=== PATIENT | female | born 1975 | race Caucasian/White ===

== ENCOUNTER → 2023-11-18 06:22 | Day surgery (SDC) | payer OTHER, SELFPAY | LOC: GI 06:22 | PROVIDERS: ATTENDING PHYSICIAN Internal Medicine Gastroenterology; FAMILY PHYSICIAN Family Medicine | DX: Z12.11 Encounter for screening for malignant neoplasm of colon (principal); D12.0 Benign neoplasm of cecum; K64.8 Other hemorrhoids | CPT/HCPCS: 45385; 45380; 88305 ==

== ENCOUNTER → 2024-02-20 15:02 | Outpatient (REF) | payer OTHER, SELFPAY | LOC: HWWDC 15:02 | PROVIDERS: ATTENDING PHYSICIAN Advanced Practice Midwife; FAMILY PHYSICIAN Family Medicine | DX: Z12.31 Encounter for screening mammogram for malignant neoplasm of breast (principal) | CPT/HCPCS: 77063; 77067 ==

== ENCOUNTER 2025-01-30 13:40 | Inpatient (IN) | payer OTHER, SELFPAY ==
[2025-01-30 07:05] VITALS: BP 136/88
--- NOTE | 2025-01-30 07:59 | ED.GENMED ---
History of Present Illness
General
Chief Complaint: Abdominal Symptoms
Source: patient
Exam Limitations: none
Time Seen by Provider: 01/30/25 07:23
Nursing documentation reviewed up to this point in time: agreed with
History of Present Illness
History of Present Illness:
49-year-old female past medical history of hypertension presenting to the emergency department today with concerns of intermittent flank pain over the past week intermittent vomiting ongoing nausea and also chest pain that feels like reflux to her
mid chest coming from her abdomen. She claims that she does have a history of kidney stones and this feels similar. She does occasionally get reflux and has not been taking any medications for it. Denies any shortness of breath or diaphoresis.
Denies any history of cardiac disease.
Past History
Past History
ED Past Medical History: None
ED Past Surgical History: Gynecological
Social History
Tobacco: Non-smoker
Personal:
Living: with family
Family History
Family History: Negative Diabetes, Hypertension, Early CAD, Asthma or Cancer
Review of Systems
Review of Systems
Allergies reviewed?: Yes
All Other Systems: ROS reviewed and negative except as documented in HPI and ROS
Phy Exam
Physical Exam
Physical Exam:
GENERAL: Alert , in no apparent distress
EYE: pupils equal and reactive
NECK: Supple, no significant adenopathy.
ENT: o/p clr, mmm.
CARDIAC: Regular rate and rhythm .
LUNGS: Clear breath sounds bilaterally, no acute respiratory distress, no wheezes/rales/rhonchi
ABDOMEN: Soft, without focal tenderness, no r/g, no cvat
NEUROLOGICAL: Alert and oriented, no focal neuro deficits
SKIN: Warm and dry, skin intact.
MUSCULOSKELETAL: No edema, well perfused.
PSYCH: Normal and appropriate interaction.
Course
Orders/Labs/Results
Orders:
Orders
01/30/25 07:07
EKG [Electrocardiogram (*1)] Urgent
Reason for Study: Chest Pain
EKG- Treatment ONCE
01/30/25 07:49
0.9% Sodium Chloride 1000 ml [Nss] 1,000 ml IV BOLUS
Famotidine [Pepcid] 20 mg IV NOW STA
Ondansetron Injectable [Zofran] 4 mg IV NOW STA
01/30/25 07:50
CT Abd/Pel (IV only)-DH only Urgent
Comment:
Reason For Exam: abd pain, vomiting, stone hx
01/30/25 09:50
Complete Blood Count/With Diff Urgent
01/30/25 10:43
Comprehensive Metabolic Panel Urgent
Lipase Urgent
Comment: ADD ON
Urinalysis Reflex To Culture Urgent
Date Specimen was Collected: 01/30/25
Time Specimen was Collected: 10:40
Urine Microscopic Reflex Cult Urgent
Urine Culture Urgent
ESTHER Source: U
Specimen Description:
Date Specimen was Collected: 01/30/25
Time Specimen was Collected: 10:40
Abnormal Lab Results
01/30/25 01/30/25
09:50 10:43
MPV 11.3 H fL
(7.4-10.4)
Abs Immat Gran (auto) 0.1 H 10^3/uL
(0-0.05)
Absolute Neuts (auto) 7.2 H 10^3/uL
(1.4-6.5)
Absolute Lymphs (auto) 0.7 L 10^3/uL
(1.2-3.4)
Immature Gran % 0.7 H %
(0-0.5)
Neutrophils % 84.5 H %
(42.2-75.2)
Lymphocytes % 8.5 L %
(20.5-51.1)
Total Bilirubin 3.2 H mg/dl
(0.2-1.3)
AST 634 H* U/L
(14-36)
ALT 918 H* U/L
(0-35)
Alkaline Phosphatase 443 H U/L
(38-126)
Urine Bilirubin 1+ A
(Negative)
Leukocyte Esterase Rfl 1+ A
(Negative)
Urine Bacteria (Reflex) Many A
(Negative)
Urine Albumin (Reflex) 1+ A
(Neg - Trace)
01/30/25 09:50
01/30/25 10:43
Vital Signs
Initial and Last Documented VS:
Initial Vital Signs
Temp Pulse Resp BP Pulse Ox
98.6 F 109 16 136/88 100
01/30/25 07:05 01/30/25 07:05 01/30/25 07:05 01/30/25 07:05 01/30/25 07:05
Last Documented Vital Signs
Temp Pulse Resp BP Pulse Ox
98.6 F 81 16 140/87 100
01/30/25 07:05 01/30/25 12:04 01/30/25 07:05 01/30/25 12:04 01/30/25 12:04
MDM/Problems Addressed
MDM/Problems Addressed:
49-year-old female presenting to the emergency department with concerns of intermittent flank pain now some radiating burning discomfort to the chest that she thinks is reflux. Initial EKG here without significant abnormality heart rate in the 80s.
Initial heart rate of 109 but during my assessment heart rate in the 80s pulse ox 100% and remainder vital signs normal. PE seems very unlikely in the setting. No recent trauma surgery immobilization no history of blood clots or estrogen product
usage.. CT scan performed that showed biliary ductal dilatation. Case discussed with GI recommending MRCP. Patient admitted in stable condition.
*Pulse Oximetry
SaO2: 100
Oxygen Mode of Delivery: Room air
Patient hypoxic: no (100)
*Critical Care Note
Total Time (30-74mins, 75-104mins- exclusive of procedures): Not Applicable
ED Attending Note
-
Portions of this chart may have been created with voice recognition software.� Occasional wrong word or��sound alike� substitutions may have occurred due to the inherent limitations of voice recognition software.
Discharge Plan
Departure
Patient Disposition: Admit
Date of Disposition: 01/30/25
Time of Disposition: 12:58
Admit to: Med/Surg
Admit to doctor: Htay
Presentation/result/management discussed w/ accepting MD/DO: Hospitalist
Patient with high blood pressure during this ER visit?: No
Condition: Good
Covid-19: Not Applicable
Discharge Problem:
Dilated bile duct, Transaminitis, Serum total bilirubin elevated
Prescriptions:
No Action
oxycodone-acetaminophen 5-325 mg Tablet
1 tab PO Q4HPRN PRN (Reason: mild pain)
tamsulosin 0.4 mg Capsule
0.4 mg PO QPM
oxycodone 5 mg Capsule
5 mg PO ONCE PRN (Reason: mild pain)
Patient Comments:
01/30/2025, pt. used old prescription.
ibuprofen [Advil] 200 mg Tablet
400 - 600 mg PO BIDPRN PRN (Reason: mild pain)
losartan-hydrochlorothiazide 50-12.5 mg Tablet
1 tab PO DAILY
rosuvastatin 20 mg Tablet
20 mg PO DAILY
Zepbound 5 mg/0.5 mL Pen Injector
5 mg SC YUNG
Patient Comments:
01/30/2025, gets this med. from [facility].
Biest/Progesterone (Lactose Free) 1.25 mg/100 mg capsule
1 cap PO BID
Patient Comments:
01/30/2025, compounded at [facility].
collagen powder
1 tbsp PO DAILY
Referrals:
Mary Whitehead DO [Family Provider, Family Practice]
Interventions
Interventions:
*General Assessment Last Done: 01/30/25 07:05
*Neglect/Abuse Screening Last Done: 01/30/25 07:05
*ED COVID-19 Vaccine History Last Done: 01/30/25 08:06
*ED Influenza Vaccine History Last Done: 01/30/25 08:06
[facility] Risk Assessment Tool Last Done: 01/30/25 08:06
*Risk Screen - Suicide (C-SSRS) Last Done: 01/30/25 07:05
OQ-Mmjqwr-Hbdhywrteg Assessment Last Done: 01/30/25 08:06
Discharge Date and Time
Print Language: SOUTH SUDANESE
[2025-01-30] MEDS: PEPCID 20 MG IV (08:17)
[2025-01-30] MEDS: ZOFRAN 4 MG IV (08:17)
[2025-01-30] MEDS: NSS 1000 IV ×2 (08:17→16:46)
[2025-01-30 09:56] LABS: Hematocrit 40.4 % (37.0-47.0); Hemoglobin 14.1 g/dL (12.0-16.0); Mean Corp Hgb Conc. 34.9 g/dL (33.0-37.0); Mean Corpuscular Volume 83.3 fL (81.0-99.0); Nucleated Red Blood Cells % 0 %; Platelet Count 166 10^3/uL (130-400); Red Cell Dist. Width 12.6 % (11.5-14.5)
[2025-01-30 10:56] LABS: Urine Character Clear (Clear)
[2025-01-30 11:08] LABS: AST (SGOT) 634 U/L (14-36); Albumin 4.3 g/dl (3.5-5.0); Alkaline Phosphatase 443 U/L (38-126); Blood Urea Nitrogen 9 mg/dl (7-17); Calcium 10.2 mg/dl (8.4-10.2); Carbon Dioxide 24 mmol/L (22-30); Chloride 103 mmol/L (98-107); Glucose 96 mg/dl (70-99); Potassium 4.3 mmol/L (3.5-5.1); Sodium 135 mmol/L (135-145); Total Protein 7.8 g/dl (6.3-8.2); eGFR > 60.00
[2025-01-30 11:13] LABS: Urine Red Blood Cell 0-2 /HPF (0-2)
[2025-01-30 11:24] LABS: ALT (SGPT) 918 U/L (0-35); Lipase 117 U/L (23-300)
--- NOTE | 2025-01-30 11:34 | PHANOTE ---
01/30/2025, could not confirm pt.'s Zepbound dose w/ pharmacy or ecw records.
[2025-01-30 12:04] VITALS: BP 140/87
--- NOTE | 2025-01-30 12:59 | HPS.HSE ---
Addendum entered and electronically signed by Bradley Caicedo MD 01/31/25 11:00:
MRI with MRCP
IMPRESSION: The gallbladder is mildly distended with no evidence for cholelithiasis. Suggestion of mild gallbladder wall thickening, which is nonspecific.
Intrahepatic biliary ductal dilation present. On MRCP images, somewhat beaded appearance of the intrahepatic bile ducts, especially within the right lobe. This finding raises the possibility of sclerosing cholangitis, although not considered
definitive.
Dilation of the common hepatic duct and common bile duct, measuring up to 8 mm. No evidence for bile duct calculus.
There is mild enhancement of the wall of the inferior common bile duct is a duodenal insertion, suggesting the possibility of cholangitis, such as on page 25 of the postcontrast images.
7.6 mm cystic lesion within the inferior tail the pancreas, likely a small benign lesion such as pseudocyst or intraductal papillary mucinous neoplasm. Based on recommendations from the [employer], follow-up MRI of the abdomen
with attention to the pancreas is recommended in one year. Management of incidental pancreatic cysts: A white paper of the ACR incidental findings committee. August 2016. Volume 14, issues 7, pages 911-923.
Original Note:
Family Physician
-
Family Physician: Mary Whitehead
Chief Complaint
-
intermittent flank pain
History of Present Illness
49F HX HTN , Kid stephen stones
- seen at ER
- Evaluate for concerns of intermittent flank pain over the past week
- intermittent vomiting ongoing nausea
- chest pain that feels like reflux to her mid chest coming from her abdomen.
HX kidney stones
Denies any shortness of breath or diaphoresis. Denies any history of cardiac disease.
Medical History
Past Medical History
Past Medical History: Reports HTN and Other (kidney)
Past Surgical History: Reports None
Social History
Tobacco: Non-smoker
Alcohol: None
Personal:
Family History
Family History: Not pertinent
Allergies / Home Medications
Allergies reflects when Allergies were last updated in [facility].
Home Medications with original date entered in [facility]
Allergy/Medication List:
Allergies
Allergy/AdvReac Type Severity Reaction Status Date / Time
ciprofloxacin (From Cipro) Allergy Rash Verified 05/25/17 00:12
milk (Milk) Allergy Unknown-'In Verified 05/25/17 00:12
tolerance'
Penicillins Allergy Unknown Verified 05/25/17 00:12
Home Medications
Biest/Progesterone (Lactose Free) 1 cap PO BID 01/30/25
collagen 1 tbsp PO DAILY 01/30/25
ibuprofen 200 mg tablet (Advil) 400 - 600 mg PO BIDPRN PRN mild pain 01/30/25
losartan 50 mg-hydrochlorothiazide 12.5 mg tablet 1 tab PO DAILY 01/30/25
oxycodone 5 mg capsule 5 mg PO ONCE PRN mild pain 01/30/25
oxycodone-acetaminophen 5 mg-325 mg tablet 1 tab PO Q4HPRN PRN mild pain 01/30/25
rosuvastatin 20 mg tablet 20 mg PO DAILY 01/30/25
tamsulosin 0.4 mg capsule 0.4 mg PO QPM 01/30/25
tirzepatide (weight loss) 5 mg/0.5 mL subcutaneous pen injector (Zepbound) 5 mg SC YUNG 01/30/25
Review of Systems
-
Constitutional: Reports No Symptoms
EENT: Reports No Symptoms
Respiratory: Reports No Symptoms
Cardiac: Reports No Symptoms
Abdomen/GI: Reports No Symptoms, Abdominal Pain and Nausea
: Reports No Symptoms
Musculoskeletal: Reports No Symptoms
Skin: Reports No Symptoms
Neurological: Reports No Symptoms
Endocrine: Reports No Symptoms
Hematologic/Lymphatic: Reports No Symptoms
Psych: Reports No Symptoms
Physical Exam
Vital Signs
Vital Signs
Temp Pulse Resp BP Pulse Ox
98.6 F 81 16 140/87 100
01/30/25 07:05 01/30/25 12:04 01/30/25 07:05 01/30/25 12:04 01/30/25 12:04
Physical Exam
General: Well Developed, Well Nourished and No Apparent Distress
HEENT: NormoCephalic, Moist mucous membranes and Atraumatic
Respiratory: Clear
Cardiac: S1/S2 and Regular Rhythm; No Murmur or Rub
GI: Soft, Non Tender, Non Distended, Normal Bowel Sounds and Other (No RHC tenderness wit deep palpation ); No Organomegaly
Rectal: Deferred by Provider
Genito-urinary: No costovertebral tender
Musculoskeletal: No Clubbing, No Cyanosis and No Edema
Skin: No Rash
Neuro: Nonfocal/grossly intact
Psych: Calm and Intact Judgment/Insight
Laboratory Results
-
01/30/25 09:50
01/30/25 10:43
Laboratory Results
Total Bilirubin 3.2 mg/dl (0.2-1.3) H 01/30/25 10:43
AST 634 U/L (14-36) H* 01/30/25 10:43
ALT 918 U/L (0-35) H* 01/30/25 10:43
Alkaline Phosphatase 443 U/L (38-126) H 01/30/25 10:43
Lipase 117 U/L (23-300) 01/30/25 10:43
Data Reviewed
-
CT Scan: Report Reviewed by me
Lab Data: Labs Reviewed by me
Impression/Plan
-
Vital Signs
Temp Pulse Resp BP Pulse Ox
98.6 F 81 16 140/87 100
01/30/25 07:05 01/30/25 12:04 01/30/25 07:05 01/30/25 12:04 01/30/25 12:04
01/30/25 01/30/25
09:50 10:43
WBC 8.5
Creatinine 0.7
eGFR > 60.00
Total Bilirubin 3.2 H
AST 634 H*
ALT 918 H*
Alkaline Phosphatase [address] AP w IV
1. Mild to moderate dilatation of the biliary tree, which appears to be new compared to the prior CT from 05/25/2017.
Gallbladder is mildly distended with no radiopaque stones or inflammatory change appreciated.
No radiopaque intraductal calculi or gross ampullary soft tissue lesions appreciated.
Nondilated pancreatic duct. Correlation with LFTs is suggested.
Further imaging with ultrasound or MRCP can be obtained as clinically warranted.
2. Small hiatal hernia.
3. No hydronephrosis or urinary tract calculi appreciated.
4. Grade 1 degenerative anterolisthesis at L4-5.
ASSESSMENT & PLAN
Acute intermittent flank pain and vomiting ongoing nausea
Significant Transaminitis, AKP Elevated TB
Mild to moderate dilatation of the biliary tree
DDX: passage of GS, cholelithiasis, ess likely cholangitis
HX Cholestasis during the
- nl WCC, afebrile , clinically no Perry' sign
- MRCP
- Hold Empiric IV ABX for now - with fever, elevated WCC - will start IV ABx
- PRN Analgesia
- PRN anti emetics
- Trend LFts
- MRI with MRCP per GI
- GI consulted
HLD
- Hold statin for abn LFTt
- Trend LFts
pHTN
- c/w Losartan
DVT Px: SCD
Full code
IP MS
[2025-01-30 13:11] VITALS: BP 137/82
--- NOTE | 2025-01-30 13:24 | CON.GI ---
Consultation
-
Date/Time Consultation Requested: 01/30/2025
Date/Time Consultation Performed: 01/30/2025
Requesting Provider: Thom SANTILLAN
Performing Provider:
Reason for Consultation: abnormal LFTS, abdominal pain
Medical History
Chief Complaint / HPI
Chief Complaint: abdominal pain, n/v
History of Present Illness:
This is a 49-year-old female with past medical history of hypertension, HLD, kidney stones, cholestasis of with both her pregnancies, ALTAF, GERD, colon polyps who was in her usual state of health up until about a week ago when she started
to develop symptoms of reflux with indigestion and also was having abdominal pain sometimes in the flank but also sometimes generalized and she thought it was related to a kidney stone which she does have a history of in the past and she had an old
medication left for pain which she took and only slightly helped with the pain.� She also had chills at that time.� Pain persisted and today she had an episode of vomiting which prompted her to come into the emergency room and on admission was noted
to have abnormal LFTs.� No fever was reported.� She had no diarrhea.� No recent change in medications, no recent use of antibiotics and no recent exposure to sick contacts or recent travel.� She started on Zepbound in August for weight loss and has
lost about 20 pounds since she started it. Her pain now seems to be more in her mid back. she says that about 2 to 3 months ago she had an episode of abdominal pain saw her PCP and apparently had an abdominal ultrasound which she says was
unremarkable with no reported gallstones at that time, she had this at [facility].� Today she also had increasing symptoms of acid reflux with the nausea and vomiting. She had a colonoscopy with Dr. Sanchez 11/2023 and had 2 cecal polyps removed- TA
and SSL.
Past Medical History
Past Medical History: Other (Hypertension, HLD, kidney stones, vitamin D deficiency, ALTAF, cholestasis of , GERD, colon polyps)
Past Surgical History: Other (D&E, breast reduction 2021)
Social History
Tobacco: Non-Smoker
Alcohol: Occasional
Personal:
Living: With Family
Family History
Family History: Other ( Paternal grandfather- pancreatic cancer, father- prostate cancer, maternal grandmother- lung cancer, maternal aunt- breast cancer)
Allergies / Home Medications
Allergy/AdvReac Type Severity Reaction Status Date / Time
ciprofloxacin (From Cipro) Allergy Rash Verified 05/25/17 00:12
milk (Milk) Allergy Unknown-'In Verified 05/25/17 00:12
tolerance'
Penicillins Allergy Unknown Verified 05/25/17 00:12
�Medication �Instructions �Recorded
Biest/Progesterone (Lactose Free) 1 cap PO BID 01/30/25
collagen 1 tbsp PO DAILY 01/30/25
ibuprofen 200 mg tablet (Advil) 400 - 600 mg PO BIDPRN PRN mild 01/30/25
pain
losartan 50 mg-hydrochlorothiazide 1 tab PO DAILY 01/30/25
12.5 mg tablet
oxycodone 5 mg capsule 5 mg PO ONCE PRN mild pain 01/30/25
oxycodone-acetaminophen 5 mg-325 1 tab PO Q4HPRN PRN mild pain 01/30/25
mg tablet
rosuvastatin 20 mg tablet 20 mg PO DAILY 01/30/25
tamsulosin 0.4 mg capsule 0.4 mg PO QPM 01/30/25
tirzepatide (weight loss) 5 mg/0.5 5 mg SC YUNG 01/30/25
mL subcutaneous pen injector
(Zepbound)
Review of Systems
-
All other systems: A 12 pt ROS was Negative except as stated above in HPI
Vital Signs
Temp Pulse Resp BP Pulse Ox
98.6 F 100 16 137/82 100
01/30/25 07:05 01/30/25 13:11 01/30/25 07:05 01/30/25 13:11 01/30/25 13:11
Physical Exam
Exam
General: No Apparent Distress
HEENT: Normocephalic
Respiratory: Clear
Cardiac: S1/S2
GI: Soft, Non Tender, Non Distended and Normal Bowel Sounds
Musculoskeletal: No Clubbing
Skin: Warm
Neuro: Awake, Alert and Oriented
Psych: Calm
Results
WBC 8.5 10^3/uL (4.8-10.8) 01/30/25 09:50
Hgb 14.1 g/dL (12.0-16.0) 01/30/25 09:50
Hct 40.4 % (37.0-47.0) 01/30/25 09:50
MCV 83.3 fL (81.0-99.0) 01/30/25 09:50
Plt Count 166 10^3/uL (130-400) 01/30/25 09:50
Absolute Neuts (auto) 7.2 10^3/uL (1.4-6.5) H 01/30/25 09:50
Sodium 135 mmol/L (135-145) 01/30/25 10:43
Potassium 4.3 mmol/L (3.5-5.1) 01/30/25 10:43
Chloride 103 mmol/L (98-107) 01/30/25 10:43
Carbon Dioxide 24 mmol/L (22-30) 01/30/25 10:43
BUN 9 mg/dl (7-17) 01/30/25 10:43
Creatinine 0.7 mg/dL (0.6-1.0) 01/30/25 10:43
Calcium 10.2 mg/dl (8.4-10.2) 01/30/25 10:43
Total Bilirubin 3.2 mg/dl (0.2-1.3) H 01/30/25 10:43
AST 634 U/L (14-36) H* 01/30/25 10:43
ALT 918 U/L (0-35) H* 01/30/25 10:43
Alkaline Phosphatase 443 U/L (38-126) H 01/30/25 10:43
Lipase 117 U/L (23-300) 01/30/25 10:43
Diagnostic Image Results:
01/30/2025 CT abdomen and Pelvis
IMPRESSION:
1. Mild to moderate dilatation of the biliary tree, which appears to be new compared to the prior CT from 05/25/2017. Gallbladder is mildly distended with no radiopaque stones or inflammatory change appreciated. No radiopaque intraductal calculi or
gross ampullary soft tissue lesions appreciated. Nondilated pancreatic duct. Correlation with LFTs is suggested. Further imaging with ultrasound or MRCP can be obtained as clinically warranted.
2. Small hiatal hernia.
3. No hydronephrosis or urinary tract calculi appreciated.
4. Grade 1 degenerative anterolisthesis at L4-5.
Prior GI Procedures:
EGD: none
Colonoscopy: 11/18/2023
Impression: - One 3 mm polyp in the cecum, removed with a jumbo
cold forceps. Resected and retrieved.
- One 5 mm polyp in the cecum, removed with a cold
snare. Resected and retrieved.
- Internal hemorrhoids.
- The examination was otherwise normal.
Cecal polyps- TA and SSL
Assessment / Plan
-
1. Abdominal pain associated with nausea, vomiting and increasing symptoms of reflux and dyspepsia with abnormal LFTs with mixed cholestatic and hepatocellular pattern most likely from probable CBD stone. CT does show a dilated CBD but no obvious
gallstones or CBD stone was seen. Lipase was normal. will get an MRI with MRCP. Will also start her on a PPI for reflux symptoms. If she does have evidence of a CBD stone then will need ERCP. continue to trend LFTs and continue IV fluids and pain
control. Will also get hepatitis serologies. Less likely etiology could be probable viral syndrome. Less likely DILIi.
-
-
Thank you for consultation and allowing me to participate in the patient's care. Please call the applications programmer analyst GI physician during the after hours with any questions or concerns.
--- NOTE | 2025-01-30 14:24 | CM ---
Chart reviewed and spoke with pt at ED bedside
Lives with and 14 and 12 yo kids at [address]
Independent with ADLs and ambulation
no DME
PCP Mary Whitehead
[facility]
no hx of VN nor SNF
DCP is to return home after MRI ?
can drive her home
CM will continue to follow up for any dcp needs
[2025-01-30 14:30] VITALS: BP 146/94; BMI 31.0
[2025-01-30 15:20] LABS: Acetaminophen < 10 ug/ml (10-30)
[2025-01-30 16:30] VITALS: BP 136/87
[2025-01-30] MEDS: TYLENOL 650 MG PO (18:19)
[2025-01-30 22:48] VITALS: BP 111/73
[2025-01-31] MEDS: NSS 1000 IV ×3 (01:37→21:59)
[2025-01-31] MEDS: DILAUDID 0.25 MG IV ×3 (01:37→21:59)
[2025-01-31 07:21] LABS: Hematocrit 34.6 % (37.0-47.0); Hemoglobin 11.7 g/dL (12.0-16.0); Mean Corp Hgb Conc. 33.8 g/dL (33.0-37.0); Mean Corpuscular Volume 85.9 fL (81.0-99.0); Red Cell Dist. Width 12.8 % (11.5-14.5)
[2025-01-31 07:47] VITALS: BP 126/84
[2025-01-31 07:54] LABS: ALT (SGPT) 563 U/L (0-35); AST (SGOT) 296 U/L (14-36); Albumin 3.3 g/dl (3.5-5.0); Alkaline Phosphatase 325 U/L (38-126); Blood Urea Nitrogen 11 mg/dl (7-17); Calcium 8.8 mg/dl (8.4-10.2); Carbon Dioxide 21 mmol/L (22-30); Chloride 106 mmol/L (98-107); Estimated Creatinine Clearance 89 ml/min; Glucose 71 mg/dl (70-99); Potassium 3.8 mmol/L (3.5-5.1); Sodium 134 mmol/L (135-145); Total Protein 6.1 g/dl (6.3-8.2); eGFR > 60.00
[2025-01-31] MEDS: COZAAR 50 MG PO (08:05)
--- NOTE | 2025-01-31 09:16 | W.PN.HOSP.TC ---
Today's Communication/Plan
-
.
Assessment / Plan
Assessment / Plan
Physical Exam
General: No Apparent Distress
HEENT: Normocephalic, Moist mucous membranes and Atraumatic
Respiratory: Clear
Cardiac: S1/S2 and Regular Rhythm; No Murmur or Rub
GI: Soft, Non Tender, Non Distended, Normal Bowel Sounds
Rectal: Deferred by Provider
Genito-urinary: No costovertebral tender
Musculoskeletal: No Clubbing, No Cyanosis and No Edema
Skin: No Rash
Neuro: Nonfocal/grossly intact. AAOX3.
Psych: Calm and Intact Judgment/Insight
# Acute abdominal pain RUQ intermittent flank pain and vomiting ongoing nausea
She is feeling better
liver enzymes are coming down
less pain, no nausea, mild heartburn
DDX medications induced, Gall bladder disease, others
Started on Zepbound since August 2024, lost some weight
Viral hepatitis panel is pending
MRI showing some dilation of intrahepatic ducts/ beaded appearance of the intrahepatic bile ducts ? sclerosing cholangitis
c/w pain control. Keep IVF
Add PPI
F/w GI recommendations
Hyponatremia
HLD
- Hold statin for abn LFTt
- Trend LFts
pHTN
- c/w Losartan
Add DVT prophylaxis
Total time spent to see the patient, examine the patient, review data and lab results, discuss treatment plan with patient, nursing staff around 55 minutes
Anticipated Discharge: > 48 hours
Subjective/Interval History
-
Date of Service: January 31, 2025
No abd pain
No nausea
Objective Data
-
Labs:
Laboratory Results
01/31/25
05:48
WBC 4.7 L
Hgb 11.7 L
Hct 34.6 L
Plt Count
Sodium 134 L
Potassium 3.8
Chloride 106
Carbon Dioxide 21 L
BUN 11
Creatinine 0.8
Glucose 71
Calcium 8.8
Total Bilirubin 1.5 H D
AST 296 H
ALT 563 H*
Alkaline Phosphatase 325 H
Vital Signs:
Vital Signs
Temp Pulse Resp BP Pulse Ox
98.3 F 81 18 126/84 96
01/31/25 07:47 01/31/25 08:05 01/31/25 07:47 01/31/25 08:05 01/31/25 07:47
I&O
01/30/25 01/31/25 02/01/25
06:59 06:59 06:59
Intake Total 1919
Balance 1919
[2025-01-31] MEDS: PROTONIX IV 40 MG IV (09:40)
[2025-01-31] MEDS: NSS (PRESERVATIVE FREE) 10 ML IV (09:40)
--- NOTE | 2025-01-31 10:33 | W.DCSUMMARY ---
Discharge Summary
Discharge Data
Date of Admission: 01/30/25
Date of Discharge: 02/02/25
-
Pending Results: No
Hospital Course
59 years old female admitted with intermittent flank pain associated with vomiting that has been going on for some time. On admission, she was noted to have significant elevation in liver enzymes with elevated total bilirubin. She did not have
fever or leukocytosis. Abdominal CAT scan showed mild to moderate dilatation of biliary tree.Abdominal MRI showed intrahepatic biliary duct dilation. Patient was evaluated by gastroenterology. Recommended to do ERCP. She underwent ERCP that
showed choledocholithiasis. Status post biliary sphincterotomy and balloon extraction by Dr Burt on 02/01. Patient tolerated procedure well. Liver enzymes started to come down. She was able to tolerate diet. She was noted to have mild
hyponatremia, Na around 134, and instructed tractions to follow-up with her primary care doctor. She remained hemodynamically stable was discharged home in a stable condition to follow-up with GI in the office.
Discharge Plan
-
Patient Disposition: Home (Routine Discharge)
Discharge Diagnosis/Procedures: Abnormal liver function due to Choledocholithiasis status post ERCP, biliary sphincterotomy and balloon extraction.
-Hyponatremia, mild. Follow-up with your primary care doctor to repeat blood work. If persistent, could be side effects of hydrochlorothiazide. Discuss it with your primary care doctor.
- Hold statin Crestor until further improvement in liver function test after few days
Diet: Low Fat
Referrals:
Felicity Dotson MD [Active, Gastroenterology] - in two to four weeks
Mary Whitehead DO [Family Provider, Family Practice]
Prescriptions:
Continued
tamsulosin 0.4 mg Capsule
0.4 mg PO QPM
ibuprofen [Advil] 200 mg Tablet
400 - 600 mg PO BIDPRN PRN (Reason: mild pain)
losartan-hydrochlorothiazide 50-12.5 mg Tablet
1 tab PO DAILY
Zepbound 5 mg/0.5 mL Pen Injector
5 mg SC YUNG
Patient Comments:
01/30/2025, gets this med. from [email or web address].
Biest/Progesterone (Lactose Free) 1.25 mg/100 mg capsule
1 cap PO BID
Patient Comments:
01/30/2025, compounded at [facility].
collagen powder
1 tbsp PO DAILY
Held
rosuvastatin 20 mg Tablet
20 mg PO DAILY
Hold Instructions: Resume on 02/11/25.
Discontinued
oxycodone-acetaminophen 5-325 mg Tablet
1 tab PO Q4HPRN PRN (Reason: mild pain)
oxycodone 5 mg Capsule
5 mg PO ONCE PRN (Reason: mild pain)
Patient Comments:
01/30/2025, pt. used old prescription.
Discharge Orders:
Discharge Patient (As Directed); Ordered 02/02/25
Ordered By: Terrell Jacobs
Discharge Date and Time
Discharge Date/Time: 02/02/25 11:33
Print Language: LAO
--- NOTE | 2025-01-31 13:45 | W.PN.GI.CBS2 ---
Today's Communication / Plan
-
Full liquid diet
NPO at [facility] for ERCP tomorrow
Will follow with you
Assessment / Plan
-
Saadia is a 49yo W with h/o obesity on GLP and HTN who presents with abd pain with elevated LFTs. Recently lost 20lbs since August 2024 after starting zepbound. MRI/MRCP 01/30 with CBD and intrahepatic ductal dilation
Impression
- Abd pain and elevated LFTs
ddx includes biliary colic, choledocholithiasis. Less likely DILI
- HTN
- Obesity
- Recent wt loss on zepbound
Recommendations
- Results of MRI d/w patient at [facility]
- Full liquid diet now and NPO at [facility] for ERCP tomorrow
- Serial LFTs now improving
- Stop zepbound
- Viral hepatitis serologies pending
- Pain management per primary team
Will follow with you
Subjective
Subjective
Date of Service: January 31, 2025
Her abd pain improved to 4 out of 10. She is eager to try diet. Denies nausea/vomiting
Objective
Data Reviewed
Laboratory Data:
Laboratory Results
01/31/25 05:48
01/31/25 05:48
Laboratory Results
Total Bilirubin 1.5 mg/dl (0.2-1.3) H D 01/31/25 05:48
AST 296 U/L (14-36) H 01/31/25 05:48
ALT 563 U/L (0-35) H* 01/31/25 05:48
Alkaline Phosphatase 325 U/L (38-126) H 01/31/25 05:48
Lipase 117 U/L (23-300) 01/30/25 10:43
Vital Signs and I&O:
Vital Signs
Temp Pulse Resp BP Pulse Ox
98.3 F 81 18 126/84 96
01/31/25 07:47 01/31/25 08:05 01/31/25 07:47 01/31/25 08:05 01/31/25 07:47
I&O
01/30/25 01/31/25 02/01/25
06:59 06:59 06:59
Intake Total 1919
Balance 1919
Physical Exam
Physical Exam
GEN: No acute distress, conversant, pleasant
HEENT: anicteric, extraocular movements intact, clear oropharynx without exudates
GI: soft, mildly distended, obese right upper side mildly tender to palpation, normal active bowel sounds, no hepatosplenomegaly
EXT: warm, well perfused, no edema bilaterally
NEURO: AAOx3, non-focal
[2025-01-31 15:46] VITALS: BP 124/73
[2025-01-31] MEDS: HEPARIN 5000 UNITS SC (20:12)
[2025-01-31 23:16] VITALS: BP 123/77
[2025-02-01 01:34] LABS: Hepatitis B Surface Antigen Negative (Negative)
[2025-02-01 07:34] VITALS: BP 124/73
[2025-02-01] MEDS: PROTONIX IV 40 MG IV (08:22)
[2025-02-01] MEDS: NSS (PRESERVATIVE FREE) 10 ML IV (08:23)
[2025-02-01] MEDS: HEPARIN 5000 UNITS SC ×2 (08:23→20:35)
[2025-02-01] MEDS: COZAAR 50 MG PO (08:23)
[2025-02-01] MEDS: NSS 1000 IV (08:27)
[2025-02-01 09:25] LABS: Hematocrit 34.4 % (37.0-47.0); Hemoglobin 11.8 g/dL (12.0-16.0); Mean Corp Hgb Conc. 34.3 g/dL (33.0-37.0); Mean Corpuscular Volume 86.0 fL (81.0-99.0); Red Cell Dist. Width 12.5 % (11.5-14.5)
[2025-02-01 09:40] LABS: ALT (SGPT) 385 U/L (0-35); AST (SGOT) 148 U/L (14-36); Albumin 3.3 g/dl (3.5-5.0); Alkaline Phosphatase 301 U/L (38-126); Blood Urea Nitrogen 6 mg/dl (7-17); Calcium 8.4 mg/dl (8.4-10.2); Carbon Dioxide 21 mmol/L (22-30); Chloride 107 mmol/L (98-107); Estimated Creatinine Clearance 119 ml/min; Glucose 84 mg/dl (70-99); Potassium 3.8 mmol/L (3.5-5.1); Sodium 133 mmol/L (135-145); Total Protein 6.1 g/dl (6.3-8.2); eGFR > 60.00
--- NOTE | 2025-02-01 09:48 | W.PN.HOSP.TC ---
Today's Communication/Plan
-
.
Assessment / Plan
Assessment / Plan
Physical Exam
General: No Apparent Distress
HEENT: Normocephalic, Moist mucous membranes and Atraumatic
Respiratory: Clear
Cardiac: S1/S2 and Regular Rhythm; No Murmur or Rub
GI: Soft, Non Tender, Non Distended, Normal Bowel Sounds
Rectal: Deferred by Provider
Genito-urinary: No costovertebral tender
Musculoskeletal: No Clubbing, No Cyanosis and No Edema
Skin: No Rash
Neuro: Nonfocal/grossly intact. AAOX3.
Psych: Calm and Intact Judgment/Insight
# Acute abdominal pain RUQ intermittent flank pain and vomiting ongoing nausea
She is feeling better
liver enzymes are coming down
less pain, no nausea, mild heartburn
DDX medications induced, Gall bladder disease, others
Status post ERCP with choledocholithiasis was found. Status post biliary sphincterotomy and balloon extraction by Dr Burt on 02/01.
Started on Zepbound since August 2024, lost some weight
Viral hepatitis panel is negative
MRI showing some dilation of intrahepatic ducts/ beaded appearance of the intrahepatic bile ducts ? sclerosing cholangitis
ok for liquid diet post procedure.
c/w PPI
Appreciate GI help
Hyponatremia
HLD
- Hold statin for abn LFTt
Liver enzymes are coming down.
pHTN
- c/w Losartan
Add DVT prophylaxis
Total time spent to see the patient, examine the patient, review data and lab results, discuss treatment plan with patient, nursing staff around 57 minutes
Anticipated Discharge: Within 24 hours
Subjective/Interval History
-
Date of Service: February 01, 2025
No nausea or abdominal pain
No chest pain
Objective Data
-
Labs:
Laboratory Results
02/01/25
07:50
WBC 5.1
Hgb 11.8 L
Hct 34.4 L
Plt Count Pending
Sodium 133 L
Potassium 3.8
Chloride 107
Carbon Dioxide 21 L
BUN 6 L
Creatinine 0.6
Glucose 84
Calcium 8.4
Total Bilirubin 0.9
AST 148 H
ALT 385 H
Alkaline Phosphatase 301 H
Vital Signs:
Vital Signs
Temp Pulse Resp BP Pulse Ox
98.0 F 72 18 129/73 97
02/01/25 07:34 02/01/25 08:23 02/01/25 07:34 02/01/25 08:23 02/01/25 07:34
I&O
01/31/25 02/01/25 02/02/25
06:59 06:59 06:59
Intake Total 1919 450 / 450 240 / 240
Balance 1919 450 / 450 240 / 240
[2025-02-01] MEDS: TYLENOL 650 MG PO ×2 (14:01→21:30)
[2025-02-01 14:59] VITALS: BP 125/73
[2025-02-01 23:55] VITALS: BP 101/63
[2025-02-02 07:54] VITALS: BP 119/84
[2025-02-02] MEDS: HEPARIN 5000 UNITS SC (08:09)
[2025-02-02] MEDS: COZAAR PO (08:10)
[2025-02-02] MEDS: NSS (PRESERVATIVE FREE) 10 ML IV (08:10)
[2025-02-02] MEDS: PROTONIX IV 40 MG IV (08:11)
[2025-02-02 08:25] LABS: ALT (SGPT) 309 U/L (0-35); AST (SGOT) 91 U/L (14-36); Albumin 3.5 g/dl (3.5-5.0); Alkaline Phosphatase 279 U/L (38-126); Blood Urea Nitrogen 7 mg/dl (7-17); Calcium 8.8 mg/dl (8.4-10.2); Carbon Dioxide 23 mmol/L (22-30); Chloride 104 mmol/L (98-107); Glucose 88 mg/dl (70-99); Potassium 4.0 mmol/L (3.5-5.1); Sodium 134 mmol/L (135-145); Total Protein 6.3 g/dl (6.3-8.2)
[2025-02-02 08:51] LABS: Estimated Creatinine Clearance 119 ml/min; eGFR > 60.00
--- NOTE | 2025-02-02 09:41 | W.PN.HOSP.TC ---
Today's Communication/Plan
-
dc
Assessment / Plan
Assessment / Plan
Physical Exam
General: No Apparent Distress
HEENT: Normocephalic, Moist mucous membranes and Atraumatic
Respiratory: Clear
Cardiac: S1/S2 and Regular Rhythm; No Murmur or Rub
GI: Soft, Non Tender, Non Distended, Normal Bowel Sounds
Rectal: no bleeding
Genito-urinary: No costovertebral tender
Musculoskeletal: No Clubbing, No Cyanosis and No Edema
Skin: No Rash
Neuro: Nonfocal/grossly intact. AAOX3.
Psych: Calm and Intact Judgment/Insight
# Acute biliary colic secondary to choledocholithiasis status post ERCP with good clinical improvement
Patient denies abdominal pain. She is tolerating diet. No nausea or vomiting. No fever or chills. Requesting discharge. For outpatient follow-up. Intermittent flank pain and vomiting ongoing nausea
Status post ERCP with choledocholithiasis was found. Status post biliary sphincterotomy and balloon extraction by Dr Burt on 02/01.
Okay to resume Zepbound per GI since August 2024, lost some weight
Viral hepatitis panel is negative
Appreciate GI help
Hyponatremia
Mild. Could be related to diuretic therapy or recent pain. Advised to follow-up with the primary repeat blood work. No confusion.
HLD
- Resume statin after limited time to let liver enzymes improvement hold statin for abn LFTt
Liver enzymes are coming down.
pHTN
- c/w Losartan and hydrochlorothiazide
Patient was advised to follow-up with a primary care doctor
Add DVT prophylaxis
Total discharge time spent to see the patient, examine the patient, review data and lab results, discuss discharge plan with patient, nursing staff around 65 minutes
Anticipated Discharge: Today
Subjective/Interval History
-
Date of Service: February 02, 2025
No chest pain
No sob
No abdominal pain
Tolerating diet well
Objective Data
-
Labs:
Laboratory Results
02/02/25
06:43
Sodium 134 L
Potassium 4.0
Chloride 104
Carbon Dioxide 23
BUN 7
Creatinine 0.6
Glucose 88
Calcium 8.8
Total Bilirubin 0.8
AST 91 H
ALT 309 H
Alkaline Phosphatase 279 H
Vital Signs:
Vital Signs
Temp Pulse Resp BP Pulse Ox
98.0 F 63 16 119/84 98
02/02/25 07:54 02/02/25 07:54 02/02/25 07:54 02/02/25 07:54 02/02/25 07:54
I&O
02/01/25 02/02/25 02/03/25
06:59 06:59 06:59
Intake Total 450 / 450 1170 / 1170
Balance 450 / 450 1170 / 1170
--- NOTE | 2025-02-02 10:22 | CM ---
Discharge home today
No CM needs
Spouse will transport
Plan: Home, no needs
== END 2025-02-02 11:33 | disposition home or self-care (01) | DRG 445 ==
LOC: 4 WEST ACU 13:40
PROVIDERS: Internal Medicine Gastroenterology; Physician Assistant; Physician Assistant Medical; ADMITTING PHYSICIAN Internal Medicine; ATTENDING PHYSICIAN Internal Medicine; CONSULT PHYSICIAN Internal Medicine Gastroenterology; EMERGENCY PHYSICIAN Student in an Organized Health Care Education/Training Program; FAMILY PHYSICIAN Family Medicine
PROC: 0FC98ZZ Extirpation of Matter from Common Bile Duct, Via Natural or Artificial Opening Endoscopic (ICD-10-PCS; 2025-02-01)
DX: K80.50 Calculus of bile duct without cholangitis or cholecystitis without obstruction (principal); E87.1 Hypo-osmolality and hyponatremia; E78.5 Hyperlipidemia, unspecified; I10 Essential (primary) hypertension; E66.9 Obesity, unspecified; Z68.31 Body mass index [BMI] 31.0-31.9, adult; K63.5 Polyp of colon; K64.8 Other hemorrhoids; Z87.891 Personal history of nicotine dependence
CPT/HCPCS: 74177; 74183; 74330; 76000; 80053; 80143; 81003; 81015; 82248; 83690; 85025; 85027; 86704; 86705; 86706; 86709; 87086; 87340; 93005; 96374; 96375; 99285; A9575; C1769; Q9967